=== PATIENT | female | born 1940 | race Caucasian/White ===

== ENCOUNTER 2021-05-08 13:11 | Outpatient (CLI) | payer MEDICARE | END 2021-05-08 13:12 | disposition home or self-care (01) | LOC: CSHULT 13:11 | PROVIDERS: ATTEND Urology | DX: N39.41 Urge incontinence (principal); N39.0 Urinary tract infection, site not specified | CPT/HCPCS: 76770 ==

== ENCOUNTER 2022-01-10 23:50 | Emergency (ER) | payer MEDICARE ==
[2022-01-11 00:35] LABS: #Monocytes 0.6 10x3/uL (0.0-1.1); #Neutrophils 6.6 10x3/uL (1.5-8.4); %Basophils 0.5 % (0.0-2.0); %Lymphocytes 5.4 % (18.0-47.0); %Monocytes 8.3 % (0.0-10.0); %Neutrophils 85.2 % (40.0-75.0); Hemoglobin 10.3 g/dL (12.0-15.5); Mean Corpuscular HGB CONC 32.5 g/dL (32.0-36.0); Mean Corpuscular Volume 98.4 fl (81.6-98.3); Mean Platelet Volume 10.3 fl (7.4-10.4); Platelet Count 363 10x3/uL (150-450); RBC Distribution Width 17.7 % (11.5-14.5); Red Blood Cell (RBC) Count 3.22 10x6/uL (3.90-5.03); White Blood Cell (WBC) Count 7.7 10x3/uL (3.5-10.5)
[2022-01-11 00:59] LABS: ALT (SGPT) 11 U/L (8-55); AST (SGOT) 18 U/L (5-34); Albumin 3.9 g/dL (3.4-4.8); Alkaline Phosphatase 67 U/L (40-110); Anion Gap 15 mmol/L (10-20); BUN (Urea Nitrogen) 25 mg/dL (9.8-20.1); Bilirubin, Total 0.4 mg/dL (0.2-1.2); Calc. Creatinine Clearance 0 mL/min (70-130); Carbon Dioxide 21 mmol/L (23-31); Chloride 103 mmol/L (98-107); Estimated GFR 88; Globulin 2.3 g/dL (2.4-3.5); Glucose 122 mg/dL (83-110); Lipase 21 U/L (8-78); Potassium 3.9 mmol/L (3.5-5.1); Protein, Total 6.2 g/dL (5.8-8.1); Sodium 135 mmol/L (136-145)
[2022-01-11] MEDS ORDERED: Ondansetron PF 4 MG/2 ML Vial ONE (01:12)
== END 2022-01-11 03:57 | disposition home or self-care (01) ==
LOC: CSHERS 23:50
DX: R11.2 Nausea with vomiting, unspecified (principal); R10.10 Upper abdominal pain, unspecified; I48.91 Unspecified atrial fibrillation; E03.9 Hypothyroidism, unspecified
CPT/HCPCS: 36415; 74177; 80053; 83690; 83735; 85025; 96374; J2405

== ENCOUNTER 2023-02-04 10:07 | Inpatient (IN) | payer MEDICARE ==
[~2023-02-04 10:07] MED LIST: Iopamidol 300 61% 100 ML VIAL FS ONE
[2023-02-04 10:43] LABS: #Basophils 0.1 10x3/uL (0.0-0.2); #Monocytes 1.7 10x3/uL (0.0-1.1); #Neutrophils 21.7 10x3/uL (1.5-8.4); %Basophils 0.2 % (0.0-2.0); %Lymphocytes 1.7 % (18.0-47.0); %Monocytes 6.9 % (0.0-10.0); %Neutrophils 90.2 % (40.0-75.0); Hematocrit 32.7 % (34.9-44.5); Hemoglobin 10.7 g/dL (12.0-15.5); Mean Corpuscular HGB CONC 32.7 g/dL (32.0-36.0); Mean Corpuscular Volume 100.9 fl (81.6-98.3); Mean Platelet Volume 9.4 fl (7.4-10.4); Platelet Count 509 10x3/uL (150-450); RBC Distribution Width 17.8 % (11.5-14.5); Red Blood Cell (RBC) Count 3.24 10x6/uL (3.90-5.03); White Blood Cell (WBC) Count 24.1 10x3/uL (3.5-10.5)
[2023-02-04 11:10] LABS: ALT (SGPT) 8 U/L (8-55); AST (SGOT) 20 U/L (5-34); Albumin 3.7 g/dL (3.4-4.8); Alkaline Phosphatase 95 U/L (40-110); Anion Gap 18 mmol/L (10-20); BUN (Urea Nitrogen) 15 mg/dL (9.8-20.1); Bilirubin, Total 0.5 mg/dL (0.2-1.2); Calc. Creatinine Clearance 0 mL/min (70-130); Calcium 8.5 mg/dL (7.8-10.44); Carbon Dioxide 17 mmol/L (23-31); Chloride 106 mmol/L (98-107); Estimated GFR 78; Globulin 2.3 g/dL (2.4-3.5); Glucose 112 mg/dL (83-110); Potassium 3.7 mmol/L (3.5-5.1); Sodium 137 mmol/L (136-145)
[2023-02-04 11:14] LABS: Troponin I 0.058 ng/mL (< 0.028)
[2023-02-04] MEDS ORDERED: Aspirin Chewable 81 MG TAB ONE (14:02)
[2023-02-04] MEDS ORDERED: Ampicillin/Sulbactam 3 GM in Sodium Chloride 0.9% 100 ML IVPB SCH ×2 (14:15→20:00)
[2023-02-04] MEDS ORDERED: Ondansetron ODT 4 MG TAB PO PRN (14:21)
[2023-02-04] MEDS ORDERED: Senokot S 8.6-50 MG TAB PO PRN (14:21)
[2023-02-04] MEDS ORDERED: traMADol HCl 50 MG TAB PO PRN (14:28)
[2023-02-04] MEDS ORDERED: traMADol HCl 50 MG TAB PO SCH (14:30)
[2023-02-04 14:44] LABS: Troponin I 0.052 ng/mL (< 0.028)
[2023-02-04] MEDS ORDERED: Piperacillin/Tazobactam 3.375 GM in Sodium Chloride 0.9% 100 ML IVPB SCH ×3 (15:30→20:00)
[2023-02-04 15:50] VITALS: BMI 19.1
[2023-02-04] MEDS ORDERED: Vancomycin HCl 750 MG in Sodium Chloride 0.9% 250 ML 250 ML IVPB SCH (16:00)
[2023-02-04] MEDS: Sodium Chloride 0.9% 1,000 ML IV SCH (16:37)
[2023-02-04 18:15] LABS: Bilirubin Neg (Negative); Blood, Urine 250 (Negative); Clarity Slightly Cloudy (Clear); Glucose, Urine (Dipstick) Normal (Negative); Ketone, Urine 50 mg/dL (Negative); Leukocyte 500 (Negative); Nitrite Positive (Negative); Protein, Urine (Dipstick) 100 mg/dl (Neg-Trace); Specific Gravity, Urine 1.015 (1.005-1.030); Urobilinogen Normal mg/dL (Less than 2)
[2023-02-04 19:05] LABS: CAUTI Indications for Culture Fever or rigors; Squamous Epithelial 0-3 HPF (0-3); WBC/HPF Greater than 50 HPF (0-3)
[2023-02-04 19:06] LABS: Bacteria/HPF 4+ HPF (None Seen); Mucous/LPF 1+ LPF (<2+); Urine Culture Reflex Yes Yes
[2023-02-04] MEDS: Nystatin 500,000 UNITS/5 ML UDCUP SSP SCH (20:34)
[2023-02-04] MEDS ORDERED: Dexamethasone 20 MG in Sodium Chloride 0.9% 50 ML IVPB SCH (21:00)
[2023-02-04] MEDS ORDERED: Vancomycin 1 GM in Premix Bag 1 BAG IVPB SCH (21:00)
[2023-02-04] MEDS: Piperacillin/Tazobactam 3.375 GM in Sodium Chloride 0.9% 100 ML IVPB SCH (22:09)
[2023-02-05] MEDS ORDERED: diphenhydrAMINE 25 MG in Sodium Chloride 0.9% 50 ML IVPB SCH (01:00)
[2023-02-05] MEDS: Sodium Chloride 0.9% 1,000 ML IV SCH ×3 (02:11→22:01)
[2023-02-05 04:27] LABS: #Monocytes 0.1 10x3/uL (0.0-1.1); #Neutrophils 18.2 10x3/uL (1.5-8.4); %Basophils 0.2 % (0.0-2.0); %Lymphocytes 1.1 % (18.0-47.0); %Monocytes 0.3 % (0.0-10.0); %Neutrophils 97.4 % (40.0-75.0); Hematocrit 29.9 % (34.9-44.5); Hemoglobin 9.6 g/dL (12.0-15.5); Mean Corpuscular HGB CONC 32.1 g/dL (32.0-36.0); Mean Corpuscular Hemoglobin 32.3 pg (27.0-33.0); Mean Corpuscular Volume 100.7 fl (81.6-98.3); Mean Platelet Volume 9.8 fl (7.4-10.4); Platelet Count 457 10x3/uL (150-450); RBC Distribution Width 17.6 % (11.5-14.5); Red Blood Cell (RBC) Count 2.97 10x6/uL (3.90-5.03); White Blood Cell (WBC) Count 18.7 10x3/uL (3.5-10.5)
[2023-02-05 04:37] LABS: Anion Gap 18 mmol/L (10-20); BUN (Urea Nitrogen) 15 mg/dL (9.8-20.1); Calc. Creatinine Clearance 54 mL/min (70-130); Calcium 8.5 mg/dL (7.8-10.44); Carbon Dioxide 17 mmol/L (23-31); Chloride 106 mmol/L (98-107); Estimated GFR 88; Glucose 109 mg/dL (83-110); Potassium 4.7 mmol/L (3.5-5.1); Sodium 136 mmol/L (136-145)
[2023-02-05] MEDS: Piperacillin/Tazobactam 3.375 GM in Sodium Chloride 0.9% 100 ML IVPB SCH ×3 (05:31→21:56)
[2023-02-05] MEDS: Acetaminophen 325 MG TAB PO PRN (06:42)
[2023-02-05] MEDS ORDERED: Cyclobenzaprine 10 MG TAB PO PRN (07:42)
[2023-02-05] MEDS ORDERED: Levothyroxine Sodium 25 MCG TAB PO SCH (08:00)
[2023-02-05] MEDS: Ferrous Sulfate 325 MG TAB PO SCH (08:25)
[2023-02-05] MEDS: traMADol HCl 50 MG TAB PO PRN (08:25)
[2023-02-05] MEDS: Folic Acid 1 MG TAB PO SCH (08:26)
[2023-02-05] MEDS: Metoprolol Tartrate 25 MG TAB PO SCH ×2 (08:26→20:33)
[2023-02-05] MEDS: Nystatin 500,000 UNITS/5 ML UDCUP SSP SCH ×3 (08:26→20:34)
[2023-02-05] MEDS: ALPRAZolam 0.25 MG TAB PO PRN (13:49)
[2023-02-05] MEDS ORDERED: Vancomycin HCl 500 MG in Sodium Chloride 0.9% 100 ML IVPB SCH (16:00)
[2023-02-05] MEDS: SUMAtriptan Succinate 50 MG TAB PO PRN (19:49)
[2023-02-05] MEDS: Gabapentin 300 MG CAP PO SCH (20:33)
[2023-02-05] MEDS: traZODone HCl 50 MG TAB PO SCH (20:44)
[2023-02-06] MEDS: Sodium Chloride 0.9% 1,000 ML IV SCH ×2 (04:11→20:16)
[2023-02-06 05:15] LABS: Anion Gap 14 mmol/L (10-20); BUN (Urea Nitrogen) 18 mg/dL (9.8-20.1); Calc. Creatinine Clearance 54 mL/min (70-130); Calcium 8.5 mg/dL (7.8-10.44); Carbon Dioxide 21 mmol/L (23-31); Chloride 109 mmol/L (98-107); Estimated GFR 88; Glucose 110 mg/dL (83-110); Potassium 3.9 mmol/L (3.5-5.1); Sodium 140 mmol/L (136-145)
[2023-02-06 05:18] LABS: #Monocytes 0.3 10x3/uL (0.0-1.1); #Neutrophils 12.6 10x3/uL (1.5-8.4); %Basophils 0.1 % (0.0-2.0); %Lymphocytes 3.5 % (18.0-47.0); %Monocytes 1.9 % (0.0-10.0); %Neutrophils 94.1 % (40.0-75.0); Hematocrit 30.6 % (34.9-44.5); Hemoglobin 10.3 g/dL (12.0-15.5); Mean Corpuscular HGB CONC 33.7 g/dL (32.0-36.0); Mean Corpuscular Hemoglobin 32.9 pg (27.0-33.0); Mean Corpuscular Volume 97.8 fl (81.6-98.3); Mean Platelet Volume 9.8 fl (7.4-10.4); Platelet Count 498 10x3/uL (150-450); RBC Distribution Width 17.2 % (11.5-14.5); Red Blood Cell (RBC) Count 3.13 10x6/uL (3.90-5.03); White Blood Cell (WBC) Count 13.4 10x3/uL (3.5-10.5)
[2023-02-06] MEDS: Levothyroxine Sodium 25 MCG TAB PO SCH (05:26)
[2023-02-06] MEDS: Piperacillin/Tazobactam 3.375 GM in Sodium Chloride 0.9% 100 ML IVPB SCH ×3 (05:26→20:13)
[2023-02-06] MEDS: Ferrous Sulfate 325 MG TAB PO SCH (08:31)
[2023-02-06] MEDS: Folic Acid 1 MG TAB PO SCH (08:31)
[2023-02-06] MEDS: Nystatin 500,000 UNITS/5 ML UDCUP SSP SCH ×3 (08:31→20:32)
[2023-02-06] MEDS: Metoprolol Tartrate 25 MG TAB PO SCH ×2 (08:32→20:31)
[2023-02-06 18:46] LABS: Vancomycin, Trough 4.1 ug/mL
[2023-02-06] MEDS: traMADol HCl 50 MG TAB PO PRN (19:26)
[2023-02-06] MEDS ORDERED: Vancomycin HCl 750 MG in Sodium Chloride 0.9% 100 ML IVPB SCH (20:00)
[2023-02-06] MEDS: traZODone HCl 50 MG TAB PO SCH (20:31)
[2023-02-06] MEDS: Gabapentin 300 MG CAP PO SCH (20:31)
[2023-02-06] MEDS: SUMAtriptan Succinate 50 MG TAB PO PRN (21:46)
[2023-02-07] MEDS: Piperacillin/Tazobactam 3.375 GM in Sodium Chloride 0.9% 100 ML IVPB SCH ×2 (00:34→08:17)
[2023-02-07] MEDS: ALPRAZolam 0.25 MG TAB PO PRN ×2 (01:53→14:27)
[2023-02-07] MEDS: Sodium Chloride 0.9% 1,000 ML IV SCH (01:53)
[2023-02-07 04:43] LABS: #Eosinphils 0.1 10x3/uL (0.0-0.5); #Monocytes 0.4 10x3/uL (0.0-1.1); #Neutrophils 6.9 10x3/uL (1.5-8.4); %Basophils 0.3 % (0.0-2.0); %Eosinophils 0.8 % (0.0-6.0); %Lymphocytes 7.1 % (18.0-47.0); %Monocytes 4.9 % (0.0-10.0); %Neutrophils 86.4 % (40.0-75.0); Hematocrit 31.2 % (34.9-44.5); Hemoglobin 9.8 g/dL (12.0-15.5); Mean Corpuscular HGB CONC 31.4 g/dL (32.0-36.0); Mean Corpuscular Hemoglobin 32.5 pg (27.0-33.0); Mean Corpuscular Volume 103.3 fl (81.6-98.3); Mean Platelet Volume 9.8 fl (7.4-10.4); Platelet Count 423 10x3/uL (150-450); RBC Distribution Width 17.5 % (11.5-14.5); Red Blood Cell (RBC) Count 3.02 10x6/uL (3.90-5.03); White Blood Cell (WBC) Count 7.9 10x3/uL (3.5-10.5)
[2023-02-07] MEDS: Levothyroxine Sodium 25 MCG TAB PO SCH (05:40)
[2023-02-07] MEDS: Vancomycin HCl 500 MG in Sodium Chloride 0.9% 100 ML IVPB SCH ×2 (08:23→20:57)
[2023-02-07] MEDS: Folic Acid 1 MG TAB PO SCH (08:24)
[2023-02-07] MEDS: Metoprolol Tartrate 25 MG TAB PO SCH ×2 (08:24→20:39)
[2023-02-07] MEDS: Nystatin 500,000 UNITS/5 ML UDCUP SSP SCH ×3 (08:24→20:37)
[2023-02-07] MEDS: Ferrous Sulfate 325 MG TAB PO SCH (08:24)
[2023-02-07] MEDS: Cefepime 1 GM in Sodium Chloride 0.9% 100 ML IVPB SCH ×2 (09:37→21:46)
[2023-02-07] MEDS: Gabapentin 300 MG CAP PO SCH ×2 (14:27→20:38)
[2023-02-07] MEDS ORDERED: Dexamethasone 20 MG in Sodium Chloride 0.9% 50 ML IVPB SCH (20:00)
[2023-02-07] MEDS: SUMAtriptan Succinate 50 MG TAB PO PRN (20:38)
[2023-02-07] MEDS: traMADol HCl 50 MG TAB PO PRN (20:38)
[2023-02-07] MEDS: traZODone HCl 50 MG TAB PO SCH (20:39)
[2023-02-08 04:27] LABS: #Neutrophils 4.7 10x3/uL (1.5-8.4); %Lymphocytes 3.4 % (18.0-47.0); %Monocytes 0.6 % (0.0-10.0); %Neutrophils 95.2 % (40.0-75.0); Hemoglobin 10.8 g/dL (12.0-15.5); Mean Corpuscular HGB CONC 32.7 g/dL (32.0-36.0); Mean Corpuscular Hemoglobin 32.1 pg (27.0-33.0); Mean Corpuscular Volume 98.2 fl (81.6-98.3); Mean Platelet Volume 9.5 fl (7.4-10.4); Platelet Count 544 10x3/uL (150-450); RBC Distribution Width 17.2 % (11.5-14.5); Red Blood Cell (RBC) Count 3.36 10x6/uL (3.90-5.03)
[2023-02-08] MEDS: Levothyroxine Sodium 25 MCG TAB PO SCH (06:16)
[2023-02-08 07:46] LABS: Vancomycin, Trough 11.4 ug/mL
[2023-02-08] MEDS: Gabapentin 300 MG CAP PO SCH ×3 (09:18→22:10)
[2023-02-08] MEDS: Ferrous Sulfate 325 MG TAB PO SCH (09:19)
[2023-02-08] MEDS: Folic Acid 1 MG TAB PO SCH (09:19)
[2023-02-08] MEDS: Metoprolol Tartrate 25 MG TAB PO SCH ×2 (09:19→22:10)
[2023-02-08] MEDS: Nystatin 500,000 UNITS/5 ML UDCUP SSP SCH ×3 (09:19→22:11)
[2023-02-08] MEDS: Cefepime 1 GM in Sodium Chloride 0.9% 100 ML IVPB SCH ×2 (09:20→22:10)
[2023-02-08] MEDS: traZODone HCl 50 MG TAB PO SCH (22:10)
[2023-02-09] MEDS: ALPRAZolam 0.25 MG TAB PO PRN ×2 (06:39→12:05)
[2023-02-09] MEDS: Levothyroxine Sodium 25 MCG TAB PO SCH (06:39)
[2023-02-09] MEDS: Folic Acid 1 MG TAB PO SCH (09:11)
[2023-02-09] MEDS: Gabapentin 300 MG CAP PO SCH ×2 (09:11→14:00)
[2023-02-09] MEDS: Nystatin 500,000 UNITS/5 ML UDCUP SSP SCH ×3 (09:11→22:08)
[2023-02-09] MEDS: Metoprolol Tartrate 25 MG TAB PO SCH (09:11)
[2023-02-09] MEDS: Cefepime 1 GM in Sodium Chloride 0.9% 100 ML IVPB SCH (09:11)
[2023-02-09] MEDS: Ferrous Sulfate 325 MG TAB PO SCH (09:11)
[2023-02-09] MEDS: traMADol HCl 50 MG TAB PO PRN (12:05)
[2023-02-09] MEDS ORDERED: NOREPINEPHRINE 8 MG/250 ML-D5W 250 ML IVPB SCH (18:15)
[2023-02-09] MEDS ORDERED: Sodium Chloride 0.9% 1,000 ML IV SCH (18:15)
[2023-02-09 18:16] LABS: #Basophils 0.1 10x3/uL (0.0-0.2); #Eosinphils 0.1 10x3/uL (0.0-0.5); #Monocytes 1.8 10x3/uL (0.0-1.1); #Neutrophils 9.6 10x3/uL (1.5-8.4); %Basophils 0.4 % (0.0-2.0); %Eosinophils 0.4 % (0.0-6.0); %Lymphocytes 6.2 % (18.0-47.0); %Monocytes 13.7 % (0.0-10.0); %Neutrophils 75.5 % (40.0-75.0); Hematocrit 33.2 % (34.9-44.5); Mean Corpuscular HGB CONC 33.1 g/dL (32.0-36.0); Mean Corpuscular Hemoglobin 32.4 pg (27.0-33.0); Mean Corpuscular Volume 97.9 fl (81.6-98.3); Mean Platelet Volume 9.7 fl (7.4-10.4); Platelet Count 553 10x3/uL (150-450); RBC Distribution Width 17.2 % (11.5-14.5); Red Blood Cell (RBC) Count 3.39 10x6/uL (3.90-5.03); White Blood Cell (WBC) Count 12.8 10x3/uL (3.5-10.5)
[2023-02-09] MEDS ORDERED: NOREPINEPHRINE 8 MG/250 ML-D5W 250 ML ONE (18:17)
[2023-02-09 18:23] LABS: ALT (SGPT) 21 U/L (8-55); AST (SGOT) 22 U/L (5-34); Albumin 3.5 g/dL (3.4-4.8); Alkaline Phosphatase 86 U/L (40-110); Anion Gap 18 mmol/L (10-20); BUN (Urea Nitrogen) 8 mg/dL (9.8-20.1); Bilirubin, Total 0.4 mg/dL (0.2-1.2); Calc. Creatinine Clearance 51 mL/min (70-130); Calcium 8.1 mg/dL (7.8-10.44); Carbon Dioxide 23 mmol/L (23-31); Chloride 94 mmol/L (98-107); Estimated GFR 86; Globulin 2.1 g/dL (2.4-3.5); Glucose 88 mg/dL (83-110); Magnesium 1.9 mg/dL (1.6-2.6); Potassium 3.5 mmol/L (3.5-5.1); Protein, Total 5.6 g/dL (5.8-8.1); Sodium 131 mmol/L (136-145)
[2023-02-09 18:27] LABS: Troponin I 0.022 ng/mL (< 0.028)
[2023-02-09 18:46] LABS: Actual Bicarbonate (HCO3v) 25.2 mEq/L (22-28); Base Excess 3.1 mEq/L (-2 - +2); Calcium, Ionized (venous) 0.92 mmol/L (1.16-1.32); Chloride (VBG) 95 mmol/L (98-106); Hematocrit-VBG 36 % (36.0-47.0); Hemoglobin (Hb) 12.1 g/dL (11.7-16.1); Potassium (VBG) 3.18 mmol/L (3.70-5.30); Puncture Site Other Site; RapidComm Collect By CBN; Sodium 127.8 mmol/L (133-146)
[2023-02-09 19:52] LABS: Phosphorus 2.5 mg/dL (2.3-4.7)
[2023-02-09] MEDS: Lactated Ringer's 1,000 ML IV SCH (20:56)
[2023-02-09] MEDS ORDERED: Vancomycin HCl 750 MG in Premix Bag 1 BAG IVPB SCH (21:00)
[2023-02-09] MEDS ORDERED: Meropenem 1 GM in Sodium Chloride 0.9% 100 ML IVPB SCH ×2 (21:00→22:00)
[2023-02-09] MEDS: Vancomycin HCl 750 MG in Sodium Chloride 0.9% 250 ML 250 ML IVPB SCH (22:04)
[2023-02-09] MEDS: traZODone HCl 50 MG TAB PO SCH (22:12)
[2023-02-10] MEDS: Acetaminophen 325 MG TAB PO PRN ×3 (00:54→17:31)
[2023-02-10] MEDS: Meropenem 1 GM in Sodium Chloride 0.9% 100 ML IVPB SCH ×3 (04:18→21:00)
[2023-02-10] MEDS: Levothyroxine Sodium 25 MCG TAB PO SCH (05:28)
[2023-02-10] MEDS: Ferrous Sulfate 325 MG TAB PO SCH (08:49)
[2023-02-10] MEDS: Folic Acid 1 MG TAB PO SCH (08:49)
[2023-02-10] MEDS: Vancomycin HCl 750 MG in Sodium Chloride 0.9% 250 ML 250 ML IVPB SCH ×2 (08:50→21:01)
[2023-02-10] MEDS: Lactated Ringer's 1,000 ML IV SCH ×2 (08:52→12:44)
[2023-02-10] MEDS: Nystatin 500,000 UNITS/5 ML UDCUP SSP SCH ×3 (09:56→21:00)
[2023-02-10] MEDS: traMADol HCl 50 MG TAB PO PRN (18:36)
[2023-02-10] MEDS: traZODone HCl 50 MG TAB PO SCH (21:00)
[2023-02-10] MEDS: Metoprolol Tartrate 25 MG TAB PO SCH (21:00)
[2023-02-11] MEDS: Meropenem 1 GM in Sodium Chloride 0.9% 100 ML IVPB SCH ×3 (03:54→20:24)
[2023-02-11] MEDS: Levothyroxine Sodium 25 MCG TAB PO SCH (04:04)
[2023-02-11] MEDS: Lactated Ringer's 1,000 ML IV SCH (05:54)
[2023-02-11 05:58] LABS: Hematocrit 33.8 % (34.9-44.5); Hemoglobin 11.1 g/dL (12.0-15.5); Mean Corpuscular HGB CONC 32.8 g/dL (32.0-36.0); Mean Corpuscular Hemoglobin 32.2 pg (27.0-33.0); Mean Platelet Volume 9.6 fl (7.4-10.4); Platelet Count 407 10x3/uL (150-450); RBC Distribution Width 17.1 % (11.5-14.5); Red Blood Cell (RBC) Count 3.45 10x6/uL (3.90-5.03); White Blood Cell (WBC) Count 7.7 10x3/uL (3.5-10.5)
[2023-02-11 05:59] LABS: MDiff Complete? YES
[2023-02-11] MEDS ORDERED: SUMAtriptan Succinate 50 MG TAB PO SCH (06:00)
[2023-02-11 06:28] LABS: Anion Gap 15 mmol/L (10-20); BUN (Urea Nitrogen) 6 mg/dL (9.8-20.1); CRP (Inflammatory) 9.81 mg/dL (= or < 0.5); Calc. Creatinine Clearance 59 mL/min (70-130); Calcium 8.3 mg/dL (7.8-10.44); Carbon Dioxide 22 mmol/L (23-31); Chloride 97 mmol/L (98-107); Estimated GFR 90; Glucose 79 mg/dL (83-110); Potassium 3.1 mmol/L (3.5-5.1); Sodium 131 mmol/L (136-145)
[2023-02-11 06:34] LABS: Platelet Adequacy Comment Appears Adequate; RBC Morph Comment Within Normal Limits
[2023-02-11 06:36] LABS: Band 6 % (5-11); Eosinophils 4 % (0-10); Lymphocytes 10 % (21-51); Monocytes 21 % (0-10); Neutrophil 59 % (42-75)
[2023-02-11 08:17] LABS: Vancomycin, Trough 15.9 ug/mL
[2023-02-11] MEDS: Ferrous Sulfate 325 MG TAB PO SCH (08:28)
[2023-02-11] MEDS: Metoprolol Tartrate 25 MG TAB PO SCH ×2 (08:29→20:28)
[2023-02-11] MEDS: Folic Acid 1 MG TAB PO SCH (08:29)
[2023-02-11] MEDS: Nystatin 500,000 UNITS/5 ML UDCUP SSP SCH ×2 (08:29→14:16)
[2023-02-11] MEDS: Vancomycin HCl 750 MG in Sodium Chloride 0.9% 250 ML 250 ML IVPB SCH ×2 (08:30→20:45)
[2023-02-11] MEDS ORDERED: Potassium Chloride 20 MEQ TAB PO SCH (11:30)
[2023-02-11] MEDS: Gabapentin 300 MG CAP PO SCH ×3 (12:33→20:28)
[2023-02-11] MEDS: traZODone HCl 50 MG TAB PO SCH (20:28)
[2023-02-12] MEDS: Meropenem 1 GM in Sodium Chloride 0.9% 100 ML IVPB SCH ×3 (05:48→21:14)
[2023-02-12] MEDS: Levothyroxine Sodium 25 MCG TAB PO SCH (05:48)
[2023-02-12] MEDS: Folic Acid 1 MG TAB PO SCH (09:11)
[2023-02-12] MEDS: Metoprolol Tartrate 25 MG TAB PO SCH ×2 (09:11→21:15)
[2023-02-12] MEDS: Gabapentin 300 MG CAP PO SCH ×4 (09:11→21:13)
[2023-02-12] MEDS: Ferrous Sulfate 325 MG TAB PO SCH (09:12)
[2023-02-12] MEDS: Vancomycin HCl 750 MG in Sodium Chloride 0.9% 250 ML 250 ML IVPB SCH ×2 (09:12→21:16)
[2023-02-12] MEDS: ALPRAZolam 0.25 MG TAB PO PRN (11:28)
[2023-02-12] MEDS: Acetaminophen 325 MG TAB PO PRN (11:29)
[2023-02-12 20:44] LABS: Vancomycin, Trough 16.1 ug/mL
[2023-02-12] MEDS ORDERED: Sodium Chloride 0.9% 250 ML 250 ML ONE (20:58)
[2023-02-12] MEDS: traZODone HCl 50 MG TAB PO SCH (21:15)
[2023-02-12] MEDS: traMADol HCl 50 MG TAB PO PRN (21:21)
[2023-02-13] MEDS: ALPRAZolam 0.25 MG TAB PO PRN (02:19)
[2023-02-13] MEDS ORDERED: Meropenem 1 GM VIAL ONE ×3 (06:01)
[2023-02-13] MEDS ORDERED: Sodium Chloride 0.9% 100 ML ONE (06:01)
[2023-02-13] MEDS: Levothyroxine Sodium 25 MCG TAB PO SCH (06:10)
[2023-02-13] MEDS: Meropenem 1 GM in Sodium Chloride 0.9% 100 ML IVPB SCH (06:12)
[2023-02-13 09:19] VITALS: TEMP 98.1
[2023-02-13] MEDS: Ferrous Sulfate 325 MG TAB PO SCH (09:35)
[2023-02-13] MEDS: Metoprolol Tartrate 25 MG TAB PO SCH (09:35)
[2023-02-13] MEDS: Folic Acid 1 MG TAB PO SCH (09:35)
[2023-02-13] MEDS: Gabapentin 300 MG CAP PO SCH (09:35)
[2023-02-13] MEDS: Vancomycin HCl 750 MG in Sodium Chloride 0.9% 250 ML 250 ML IVPB SCH (09:36)
[2023-02-13 11:28] VITALS: BP 124/68
== END 2023-02-13 11:10 | disposition home or self-care (01) | DRG 872 ==
LOC: CSHERS 10:07 → CSHTELE 15:24 → OBSVTOIN 02-05 16:51 → CSHICU 02-09 18:05 → CSHTELE 02-11 18:06
PROVIDERS: ADMIT Family Medicine; ATTEND Hospitalist
PROC: 3E03329 Introduction of Other Anti-infective into Peripheral Vein, Percutaneous Approach (ICD-10-PCS; 2023-02-05)
PROC: 4A043R1 Measurement of Venous Saturation, Peripheral, Percutaneous Approach (ICD-10-PCS; principal; 2023-02-09)
DX: A41.81 Sepsis due to Enterococcus (principal); N39.0 Urinary tract infection, site not specified; E87.1 Hypo-osmolality and hyponatremia; Z68.1 Body mass index [BMI] 19.9 or less, adult; K11.21 Acute sialoadenitis; E03.9 Hypothyroidism, unspecified; R19.7 Diarrhea, unspecified; I10 Essential (primary) hypertension; Z88.5 Allergy status to narcotic agent; Z79.899 Other long term (current) drug therapy; I48.91 Unspecified atrial fibrillation; F41.9 Anxiety disorder, unspecified; F32.A Depression, unspecified; Z96.651 Presence of right artificial knee joint; Z96.641 Presence of right artificial hip joint; Z90.710 Acquired absence of both cervix and uterus; Z98.890 Other specified postprocedural states; Z66 Do not resuscitate; M19.90 Unspecified osteoarthritis, unspecified site; R63.6 Underweight
CPT/HCPCS: 36415; 36416; 70450; 70491; 71045; 80048; 80053; 80202; 81001; 82553; 82805; 83605; 83735; 84100; 84145; 84484; 85025; 85379; 86140; 87040; 87077; 87086; 87186; 93005; 93010; 93306; 94760; 94762; 96372; 96374; 96375; 96376; G0378; J0295; J0692; J1100; J1200; J1650; J2185; J2543; J3370; J3490; J7050; J7120; Q9967

== ENCOUNTER 2023-03-05 14:15 | Inpatient (IN) | payer MEDICARE ==
[2023-03-05 15:23] LABS: ALT (SGPT) 12 U/L (8-55); AST (SGOT) 24 U/L (5-34); Albumin 3.6 g/dL (3.4-4.8); Alkaline Phosphatase 138 U/L (40-110); Anion Gap 18 mmol/L (10-20); BUN (Urea Nitrogen) 9 mg/dL (9.8-20.1); Bilirubin, Total 0.5 mg/dL (0.2-1.2); Calc. Creatinine Clearance 0 mL/min (70-130); Calcium 9.2 mg/dL (7.8-10.44); Carbon Dioxide 19 mmol/L (23-31); Chloride 93 mmol/L (98-107); Estimated GFR 83; Globulin 3.5 g/dL (2.4-3.5); Glucose 121 mg/dL (83-110); Protein, Total 7.1 g/dL (5.8-8.1); Sodium 126 mmol/L (136-145)
[2023-03-05 15:37] LABS: #Basophils 0.1 10x3/uL (0.0-0.2); #Eosinphils 0.1 10x3/uL (0.0-0.5); #Monocytes 1.2 10x3/uL (0.0-1.1); #Neutrophils 12.5 10x3/uL (1.5-8.4); %Basophils 0.7 % (0.0-2.0); %Eosinophils 0.9 % (0.0-6.0); %Monocytes 8.2 % (0.0-10.0); %Neutrophils 84.1 % (40.0-75.0); Hematocrit 38.6 % (34.9-44.5); Hemoglobin 12.3 g/dL (12.0-15.5); Mean Corpuscular HGB CONC 31.9 g/dL (32.0-36.0); Mean Corpuscular Hemoglobin 30.1 pg (27.0-33.0); Mean Corpuscular Volume 94.6 fl (81.6-98.3); Mean Platelet Volume 9.3 fl (7.4-10.4); Platelet Count 664 10x3/uL (150-450); RBC Distribution Width 17.2 % (11.5-14.5); Red Blood Cell (RBC) Count 4.08 10x6/uL (3.90-5.03); White Blood Cell (WBC) Count 14.9 10x3/uL (3.5-10.5)
[2023-03-05 16:07] LABS: Bilirubin Neg (Negative); Blood, Urine 150 (Negative); Glucose, Urine (Dipstick) Normal (Negative); Ketone, Urine Negative (Negative); Leukocyte 500 (Negative); Nitrite Negative (Negative); Protein, Urine (Dipstick) 15 mg/dl (Neg-Trace); Urobilinogen Normal mg/dL (Less than 2); pH, Urine 6.5 (5.0-9.0)
[2023-03-05 16:09] LABS: Clarity Slightly Cloudy (Clear)
[2023-03-05 16:25] LABS: CAUTI Indications for Culture Alt mental st,lethar
[2023-03-05 16:27] LABS: Yeast-Budding 1+ HPF (None Seen)
[2023-03-05 16:28] LABS: Bacteria/HPF 3+ HPF (None Seen)
[2023-03-05 16:29] LABS: Mucous/LPF 1+ LPF (<2+)
[2023-03-05 16:30] LABS: Urine Culture Reflex No No
[2023-03-05] MEDS ORDERED: cefTRIAXone (ROCEPHIN) 1 GM VIAL ONE (16:39)
[2023-03-05 16:48] LABS: Troponin I Less than 0.010 ng/mL (< 0.028)
[2023-03-05] MEDS ORDERED: Acetaminophen 325 MG TAB PO PRN (17:55)
[2023-03-05] MEDS ORDERED: Ondansetron ODT 4 MG TAB PO PRN (17:55)
[2023-03-05 19:04] LABS: SARS-CoV-2 NAA Rapid Test Not Detected (NotDetected)
[2023-03-05 19:18] LABS: Troponin I Less than 0.010 ng/mL (< 0.028)
[2023-03-05 20:34] VITALS: BMI 24.0
[2023-03-05] MEDS: Sodium Chloride 0.9% 1,000 ML IV SCH (20:43)
[2023-03-05] MEDS: Metoprolol Tartrate 25 MG TAB PO SCH (20:46)
[2023-03-05] MEDS ORDERED: Cyclobenzaprine 10 MG TAB PO PRN (21:10)
[2023-03-05] MEDS: Gabapentin 300 MG CAP PO SCH (21:20)
[2023-03-05] MEDS: traZODone HCl 50 MG TAB PO SCH (21:21)
[2023-03-05] MEDS: ALPRAZolam 0.25 MG TAB PO PRN (21:21)
[2023-03-05 23:10] LABS: Troponin I Less than 0.010 ng/mL (< 0.028)
[2023-03-06 04:21] LABS: Anion Gap 13 mmol/L (10-20); BUN (Urea Nitrogen) 6 mg/dL (9.8-20.1); Calc. Creatinine Clearance 76 mL/min (70-130); Calcium 8.2 mg/dL (7.8-10.44); Carbon Dioxide 22 mmol/L (23-31); Chloride 104 mmol/L (98-107); Estimated GFR 91; Glucose 89 mg/dL (83-110); Potassium 3.5 mmol/L (3.5-5.1); Sodium 135 mmol/L (136-145)
[2023-03-06 04:22] LABS: #Basophils 0.1 10x3/uL (0.0-0.2); #Eosinphils 0.3 10x3/uL (0.0-0.5); #Monocytes 0.9 10x3/uL (0.0-1.1); #Neutrophils 6.5 10x3/uL (1.5-8.4); %Eosinophils 3.4 % (0.0-6.0); %Lymphocytes 9.3 % (18.0-47.0); %Monocytes 10.6 % (0.0-10.0); %Neutrophils 73.3 % (40.0-75.0); Hematocrit 31.4 % (34.9-44.5); Hemoglobin 10.2 g/dL (12.0-15.5); Mean Corpuscular HGB CONC 32.5 g/dL (32.0-36.0); Mean Corpuscular Volume 92.4 fl (81.6-98.3); Mean Platelet Volume 9.4 fl (7.4-10.4); Platelet Count 567 10x3/uL (150-450); White Blood Cell (WBC) Count 8.9 10x3/uL (3.5-10.5)
[2023-03-06] MEDS: Sodium Chloride 0.9% 1,000 ML IV SCH ×2 (05:03→15:28)
[2023-03-06] MEDS: Levothyroxine Sodium 25 MCG TAB PO SCH (05:03)
[2023-03-06] MEDS: Metoprolol Tartrate 25 MG TAB PO SCH ×2 (08:06→22:14)
[2023-03-06] MEDS ORDERED: ALPRAZolam 0.25 MG TAB PO PRN (08:59)
[2023-03-06] MEDS: ALPRAZolam 0.25 MG TAB PO PRN ×2 (11:09→22:18)
[2023-03-06] MEDS: traMADol HCl 50 MG TAB PO PRN ×2 (11:37→22:13)
[2023-03-06] MEDS ORDERED: Acetaminophen 325 MG TAB PO PRN (15:31)
[2023-03-06] MEDS ORDERED: Magnesium 2 GM/50 ML(in water) 2 GM in Premix Bag 1 BAG IVPB SCH (16:00)
[2023-03-06] MEDS ORDERED: traMADol HCl 50 MG TAB PO SCH (16:00)
[2023-03-06] MEDS ORDERED: Potassium Chloride 20 MEQ TAB PO SCH (17:00)
[2023-03-06] MEDS: cefTRIAXone\\ROCEPHIN 1 GM in Sodium Chloride 0.9% 100 ML IVPB SCH (17:44)
[2023-03-06] MEDS: Heparin 5,000 UNITS/ML VIAL SC SCH (22:12)
[2023-03-06] MEDS: Acetaminophen 325 MG TAB PO SCH (22:13)
[2023-03-06] MEDS: Folic Acid 1 MG TAB PO SCH (22:14)
[2023-03-06] MEDS: traZODone HCl 50 MG TAB PO SCH (22:14)
[2023-03-06] MEDS: Multivit, Therapeutic 1 TAB PO SCH (22:14)
[2023-03-06] MEDS: Gabapentin 300 MG CAP PO SCH (22:15)
[2023-03-06] MEDS: Cyanocobalamin (Vitamin B-12) 1,000 MCG TAB PO SCH (22:16)
[2023-03-06] MEDS: Thiamine 100 MG TAB PO SCH (22:16)
[2023-03-07 04:57] LABS: #Basophils 0.1 10x3/uL (0.0-0.2); #Eosinphils 0.5 10x3/uL (0.0-0.5); #Monocytes 0.9 10x3/uL (0.0-1.1); #Neutrophils 4.4 10x3/uL (1.5-8.4); %Basophils 1.3 % (0.0-2.0); %Eosinophils 7.3 % (0.0-6.0); %Lymphocytes 11.3 % (18.0-47.0); %Monocytes 13.2 % (0.0-10.0); Hemoglobin 9.6 g/dL (12.0-15.5); Mean Corpuscular Hemoglobin 30.1 pg (27.0-33.0); Mean Platelet Volume 9.4 fl (7.4-10.4); Phosphorus 3.7 mg/dL (2.3-4.7); Platelet Count 552 10x3/uL (150-450); Red Blood Cell (RBC) Count 3.19 10x6/uL (3.90-5.03); White Blood Cell (WBC) Count 6.8 10x3/uL (3.5-10.5)
[2023-03-07 05:07] LABS: Anion Gap 14 mmol/L (10-20); BUN (Urea Nitrogen) 4 mg/dL (9.8-20.1); Calc. Creatinine Clearance 75 mL/min (70-130); Calcium 8.2 mg/dL (7.8-10.44); Carbon Dioxide 22 mmol/L (23-31); Chloride 105 mmol/L (98-107); Estimated GFR 91; Glucose 76 mg/dL (83-110); Magnesium 2.2 mg/dL (1.6-2.6); Potassium 3.7 mmol/L (3.5-5.1); Sodium 137 mmol/L (136-145)
[2023-03-07] MEDS: Levothyroxine Sodium 25 MCG TAB PO SCH (06:36)
[2023-03-07] MEDS: ALPRAZolam 0.25 MG TAB PO PRN ×2 (09:21→22:03)
[2023-03-07] MEDS: Acetaminophen 325 MG TAB PO SCH ×3 (09:21→21:49)
[2023-03-07] MEDS: traMADol HCl 50 MG TAB PO PRN ×2 (09:21→21:49)
[2023-03-07] MEDS: Metoprolol Tartrate 25 MG TAB PO SCH ×2 (09:21→21:50)
[2023-03-07] MEDS: Heparin 5,000 UNITS/ML VIAL SC SCH ×2 (09:21→21:49)
[2023-03-07] MEDS: cefTRIAXone\\ROCEPHIN 1 GM in Sodium Chloride 0.9% 100 ML IVPB SCH (16:52)
[2023-03-07 18:21] LABS: Creatinine, Urine Less than 20.00 mg/dL (47-110); Protein, Urine Random Quant Less than 10 mg/dL (1-14)
[2023-03-07 20:22] LABS: Urea Nitrogen, Random Urine 67 mg/dl
[2023-03-07] MEDS: Gabapentin 300 MG CAP PO SCH (21:49)
[2023-03-07] MEDS: traZODone HCl 50 MG TAB PO SCH (21:50)
[2023-03-07] MEDS: Cyanocobalamin (Vitamin B-12) 1,000 MCG TAB PO SCH (21:50)
[2023-03-07] MEDS: Multivit, Therapeutic 1 TAB PO SCH (21:50)
[2023-03-07] MEDS: Folic Acid 1 MG TAB PO SCH (21:50)
[2023-03-07] MEDS: Thiamine 100 MG TAB PO SCH (21:50)
[2023-03-08] MEDS: Levothyroxine Sodium 25 MCG TAB PO SCH (05:43)
[2023-03-08] MEDS: traMADol HCl 50 MG TAB PO PRN ×3 (05:43→21:51)
[2023-03-08 06:15] LABS: #Basophils 0.1 10x3/uL (0.0-0.2); #Eosinphils 0.5 10x3/uL (0.0-0.5); #Monocytes 0.7 10x3/uL (0.0-1.1); #Neutrophils 4.3 10x3/uL (1.5-8.4); %Basophils 1.2 % (0.0-2.0); %Eosinophils 7.9 % (0.0-6.0); %Lymphocytes 13.3 % (18.0-47.0); %Monocytes 10.4 % (0.0-10.0); Hematocrit 30.5 % (34.9-44.5); Hemoglobin 9.8 g/dL (12.0-15.5); Mean Corpuscular HGB CONC 32.1 g/dL (32.0-36.0); Mean Corpuscular Hemoglobin 30.1 pg (27.0-33.0); Mean Corpuscular Volume 93.6 fl (81.6-98.3); Mean Platelet Volume 9.6 fl (7.4-10.4); Platelet Count 601 10x3/uL (150-450); RBC Distribution Width 16.9 % (11.5-14.5); Red Blood Cell (RBC) Count 3.26 10x6/uL (3.90-5.03); White Blood Cell (WBC) Count 6.6 10x3/uL (3.5-10.5)
[2023-03-08 06:20] LABS: ALT (SGPT) 9 U/L (8-55); AST (SGOT) 18 U/L (5-34); Albumin 2.8 g/dL (3.4-4.8); Alkaline Phosphatase 103 U/L (40-110); Anion Gap 14 mmol/L (10-20); BUN (Urea Nitrogen) 5 mg/dL (9.8-20.1); Bilirubin, Direct 0.1 mg/dL (0.1-0.3); Bilirubin, Total 0.2 mg/dL (0.2-1.2); Calc. Creatinine Clearance 73 mL/min (70-130); Calcium 8.6 mg/dL (7.8-10.44); Carbon Dioxide 24 mmol/L (23-31); Chloride 103 mmol/L (98-107); Estimated GFR 90; Glucose 82 mg/dL (83-110); Magnesium 1.9 mg/dL (1.6-2.6); Potassium 4.2 mmol/L (3.5-5.1); Protein, Total 5.1 g/dL (5.8-8.1); Sodium 137 mmol/L (136-145)
[2023-03-08] MEDS: Acetaminophen 325 MG TAB PO SCH ×3 (10:14→21:49)
[2023-03-08] MEDS: Metoprolol Tartrate 25 MG TAB PO SCH ×2 (10:16→21:50)
[2023-03-08] MEDS: Heparin 5,000 UNITS/ML VIAL SC SCH ×2 (10:16→21:49)
[2023-03-08 12:35] LABS: Free T4 (Free Thyroxine) 1.15 ng/dL (0.70-1.48); Thyroid Stimulating Hormone 2.5264 uIU/mL (0.35-4.94)
[2023-03-08] MEDS ORDERED: Cosyntropin 250 MCG VIAL SLOW IVP SCH (14:45)
[2023-03-08] MEDS: cefTRIAXone\\ROCEPHIN 1 GM in Sodium Chloride 0.9% 100 ML IVPB SCH (16:48)
[2023-03-08] MEDS: Folic Acid 1 MG TAB PO SCH (21:49)
[2023-03-08] MEDS: traZODone HCl 50 MG TAB PO SCH (21:50)
[2023-03-08] MEDS: ALPRAZolam 0.25 MG TAB PO PRN (21:50)
[2023-03-08] MEDS: Gabapentin 300 MG CAP PO SCH (21:50)
[2023-03-08] MEDS: Thiamine 100 MG TAB PO SCH (21:50)
[2023-03-08] MEDS: Multivit, Therapeutic 1 TAB PO SCH (21:50)
[2023-03-08] MEDS: Cyanocobalamin (Vitamin B-12) 1,000 MCG TAB PO SCH (21:51)
[2023-03-09] MEDS: Levothyroxine Sodium 25 MCG TAB PO SCH (05:04)
[2023-03-09] MEDS: traMADol HCl 50 MG TAB PO PRN (05:04)
[2023-03-09] MEDS ORDERED: Nystatin Powder 15 GM BOT TOP SCH ×2 (09:00)
[2023-03-09] MEDS: Acetaminophen 325 MG TAB PO SCH ×2 (09:48→15:06)
[2023-03-09] MEDS: Metoprolol Tartrate 25 MG TAB PO SCH (09:49)
[2023-03-09] MEDS: ALPRAZolam 0.25 MG TAB PO PRN (09:49)
[2023-03-09] MEDS: Heparin 5,000 UNITS/ML VIAL SC SCH (09:53)
[2023-03-09] MEDS: cefTRIAXone\\ROCEPHIN 1 GM in Sodium Chloride 0.9% 100 ML IVPB SCH (13:24)
[2023-03-09 17:10] VITALS: BP 126/60; TEMP 97.4
== END 2023-03-09 17:15 | DRG 872 ==
LOC: CSHERS 14:15 → CSHTELE 19:56 → OBSVTOIN 03-06 14:55
PROVIDERS: ADMIT Student in an Organized Health Care Education/Training Program; ATTEND Family Medicine
DX: A41.9 Sepsis, unspecified organism (principal); E87.1 Hypo-osmolality and hyponatremia; N30.01 Acute cystitis with hematuria; E03.9 Hypothyroidism, unspecified; I10 Essential (primary) hypertension; F41.9 Anxiety disorder, unspecified; F32.A Depression, unspecified; M19.90 Unspecified osteoarthritis, unspecified site; G43.909 Migraine, unspecified, not intractable, without status migrainosus; I48.91 Unspecified atrial fibrillation; E86.0 Dehydration; E87.6 Hypokalemia; G89.4 Chronic pain syndrome; Z20.822 Contact with and (suspected) exposure to COVID-19; Z88.5 Allergy status to narcotic agent; Z79.899 Other long term (current) drug therapy; Z96.651 Presence of right artificial knee joint; Z96.641 Presence of right artificial hip joint; Z90.710 Acquired absence of both cervix and uterus; Z98.890 Other specified postprocedural states
CPT/HCPCS: 36415; 71045; 74176; 76770; 80048; 80053; 80076; 81001; 82533; 82570; 82607; 83605; 83735; 83930; 83935; 84100; 84156; 84439; 84443; 84481; 84484; 84540; 85025; 87040; 87086; 93005; 96361; 96372; 96374; G0378; J0696; J1644; J1650; J3475; J3490; J7050

== ENCOUNTER 2025-03-09 11:10 | Emergency (ER) | payer OTHER ==
[2025-03-09 11:36] LABS: #Basophils 0.04 10x3/uL (0.0-0.2); #Eosinophils 0.09 10x3/uL (0.0-0.5); #Monocytes 0.93 10x3/uL (0.0-1.1); #Neutrophils 9.29 10x3/uL (1.5-8.4); %Basophils 0.4 % (0.0-2.0); %Eosinophils 0.8 % (0.0-6.0); %Lymphocytes 7.6 % (18.0-47.0); %Monocytes 8.2 % (0.0-10.0); %Neutrophils 82.4 % (40.0-75.0); Hematocrit 32.2 % (34.9-44.5); Hemoglobin 9.9 g/dL (12.0-15.5); Mean Corpuscular Hemoglobin 31.0 pg (27.0-33.0); Mean Corpuscular Volume 100.9 fL (81.6-98.3); Platelet Count 349 10x3/uL (150-450); Red Blood Cell (RBC) Count 3.19 10x6/uL (3.90-5.03); White Blood Cell (WBC) Count 11.28 10x3/uL (3.5-10.5)
[2025-03-09 12:04] LABS: ALT (SGPT) 11 U/L (Less than 34); AST (SGOT) 19 U/L (11-34); Albumin 3.9 g/dL (3.1-4.5); Alkaline Phosphatase 61 U/L (40-110); Anion Gap 12 mmol/L (10-20); BUN (Urea Nitrogen) 24 mg/dL (9.8-20.1); Bilirubin, Total 0.4 mg/dL (0.3-1.2); Calc. Creatinine Clearance 0 mL/min (70-130); Calcium 8.8 mg/dL (7.8-10.44); Carbon Dioxide 24 mmol/L (23-31); Chloride 103 mmol/L (98-107); Globulin 2.3 g/dL (2.4-3.5); Glucose 108 mg/dL (83-110); Potassium 4.2 mmol/L (3.5-5.1); Sodium 135 mmol/L (136-145)
[2025-03-09 12:11] LABS: Troponin I 0.010 ng/mL (< 0.028)
[2025-03-09 14:02] LABS: Specific Gravity, Urine 1.005 (1.005-1.030)
[2025-03-09 14:11] LABS: Glucose, Urine (Dipstick) Unable to Interpret mg/dL (Negative); Leukocyte Unable to Interpret (Negative); Protein, Urine (Dipstick) Unable to Interpret mg/dl (Neg-Trace)
[2025-03-09 14:43] LABS: Bacteria/HPF 4+ HPF (None Seen); CAUTI Indications for Culture Pelvic or flank pain; Urine Culture Reflex Yes Yes; WBC/HPF 21-50 HPF (0-3)
== END 2025-03-09 14:53 | disposition home or self-care (01) ==
LOC: CSHERS 11:10
DX: N30.00 Acute cystitis without hematuria (principal); R29.700 NIHSS score 0; I10 Essential (primary) hypertension
CPT/HCPCS: 36415; 70450; 71045; 80053; 81001; 83605; 83880; 84484; 85025; 87077; 87086; 87186; 93005

== ENCOUNTER 2025-05-05 19:39 | Emergency (ER) | payer OTHER, MEDICAID ==
[2025-05-05] MEDS ORDERED: Ketorolac Tromethamine 30 MG (1 mL) VIAL ONE (20:21)
== END 2025-05-05 23:00 | disposition home or self-care (01) ==
LOC: CSHERS 19:39
DX: S32.592A Other specified fracture of left pubis, initial encounter for closed fracture (principal); S32.602A Unspecified fracture of left ischium, initial encounter for closed fracture; I10 Essential (primary) hypertension; E03.9 Hypothyroidism, unspecified; I48.91 Unspecified atrial fibrillation; W18.2XXA Fall in (into) shower or empty bathtub, initial encounter; Z79.899 Other long term (current) drug therapy
CPT/HCPCS: 72170; 96372; 99284; J1885